=== PATIENT | male | born 1940 | race Caucasian/White ===

== ENCOUNTER → 2016-09-20 | Outpatient (CLI) | payer MEDICARE, OTHER ==
[~2016-09-20] MED LIST: ASPIRIN LO-DOSE81 MG PO; CELEBREX200 MG PO; CENTRUM COMPLE1 EACH PO; CYMBALTA30 MG PO; NORCO 5-325 TA1 EACH PO; PRILOSEC20 MG PO; RYTHMOL150 MG PO; TYLENOL EXTRA500 MG PO; VITAMIN D-40400 UNIT PO; XARELTO20 MG PO; ZOCOR20 MG PO; ZYLOPRIM300 MG PO
== END | disposition disaster alternative care site (69) ==
LOC: GRAD 13:00
DX: M48.06 Spinal stenosis, lumbar region (principal); M54.17 Radiculopathy, lumbosacral region; M54.10 Radiculopathy, site unspecified; M47.9 Spondylosis, unspecified

== ENCOUNTER → 2016-10-12 | Outpatient (CLI) | payer MEDICARE, OTHER ==
--- NOTE | ~2016-10-12 | ENPV ---
Vascular Lower Arterial Plethysmography Procedure Demographics Patient Name MAGALY TYLER Date of Study 10/12/2016 Patient Number [id number] Gender Male Date of 1940 Age 76 Visit Number [id number] Height Accession Number [id number] Weight Room Number BSA BMI Referring Adan Mackey MD Interpreting Jt Salcido MD Physician Candy Hernández MD Physician Physician Ordering Adan Mackey Enterostomal Nurse Physician Leadlighter Abisai Salazar [facility] Conclusions Summary Ankle brachial index on the right is 1.27 no significant arterial disease at rest. Ankle brachial index on the left is 1.28 no significant arterial disease at rest. The toe brachial index on the right is 0.93 which is normal . The toe brachial index on the left is 1.16 which is normal . Waveforms are triphasic throughout. Procedure Type of Study: Extremities Arteries:Lower Arterial Plethysmography, Ankle/Brachial Indicies. Indications for Study:Pain in Limb. Appropriate Use Criteria:9 Blood Pressure:Right arm 139/ mmHg.Left arm 140/ mmHg. Patient Status:Routine. Study Location:Echo Lab. Technical Quality:Adequate visualization. Velocities are measured in cm/s ; Diameters are measured in cm Pressures + ++--------+-----+----+--------+-----+ ! !!Right ! !Left! ! ! + ++--------+-----+----+--------+-----+ !Location !!Pressure!Ratio! !Pressure!Ratio! + ++--------+-----+----+--------+-----+ !Ankle PT !!178 !1.27 ! !179 !1.28 ! + ++--------+-----+----+--------+-----+ !DP !!171 !1.22 ! !155 !1.11 ! + ++--------+-----+----+--------+-----+ !Great Toe !!130 !0.93 ! !162 !1.16 ! + ++--------+-----+----+--------+-----+ - Brachial Pressure:Right: 139.Left:140. - MAYURI:Right: 1.27.Left: 1.28. Plethysmographic Digit Evaluation +---------++--------+-----+ ++--------+-----+ + ! !!Right ! !Left !! ! ! ! +---------++--------+-----+ ++--------+-----+ + !Location !!Pressure!Ratio!PPG Wave Form !!Pressure!Ratio!PPG Wave Form ! +---------++--------+-----+ ++--------+-----+ + !Great Toe!!130 !0.93 ! !!162 !1.16 ! ! +---------++--------+-----+ ++--------+-----+ + Signature dtt: LIZ [place] dtd: 10/12/16 1306 Physician Self Edit
== END | disposition disaster alternative care site (69) ==
LOC: GCAR 12:40
DX: G60.8 Other hereditary and idiopathic neuropathies (principal); G62.9 Polyneuropathy, unspecified; G61.81 Chronic inflammatory demyelinating polyneuritis